=== PATIENT | female | born 1970 | race Caucasian/White ===

== ENCOUNTER 2018-04-05 17:42 | Emergency (ER) | payer SELFPAY ==
[~2018-04-05] VITALS: Ht 157.5 cm; Wt 61.2 kg
--- NOTE | 2018-04-05 18:11 | PHYS DOC ---
Past History Past Medical History: Bipolar, Depression Past Surgical History: Alcohol Use: None Drug Use: None Adult General Chief Complaint Chief Complaint: LOWER EXTREMITY SWELLING [facility] HPI 47-year-old female presents with 2 week history of lower extremity swelling. The patient was seen 1 week ago at [facility] and had a workup that was all negative. She states that they "evaluated her heart, took x-rays, and lab work." She comes to the ED today because it isn't going away. Does not of a history of lower extremity swelling. She does not a history of diabetes. She's had no medication changes. She denies any pain in the lower extremities or shortness of breath. She's had no long plane flights or car rides. She denies fever or chills. She did start drinking extra suite iced tea 2 weeks ago and drinking every day for about a week. She thought this might be part of the cause so she stopped drinking it. But has not improved. She continued in her PCP for another 2 weeks. Review of Systems Review of Systems Constitutional: Denies fever or chills [] Eyes: Denies change in visual acuity, redness, or eye pain [] HENT: Denies nasal congestion or sore throat [] Respiratory: Denies cough or shortness of breath [] Cardiovascular: No additional information not addressed in HPI [] GI: Denies abdominal pain, nausea, vomiting, bloody stools or diarrhea [] : Denies dysuria or hematuria [] Musculoskeletal: Bilateral lower extremity swelling[] Integument: Denies rash or skin lesions [] Neurologic: Denies headache, focal weakness or sensory changes [] Endocrine: Denies polyuria or polydipsia [] All other systems were reviewed and found to be within normal limits, except as documented in this note. Allergies Allergies Allergies Coded Allergies Type Severity Reaction Last Updated Verified Sulfa (Sulfonamide Antibiotics) Allergy Unknown 04/05/18 Yes Physical Exam Physical Exam Constitutional: Well developed, well nourished, no acute distress, non-toxic appearance. [] HENT: Normocephalic, atraumatic, bilateral external ears normal, oropharynx moist, no oral exudates, nose normal. [] Eyes: PERRLA, EOMI, conjunctiva normal, no discharge. [] Neck: Normal range of motion, no tenderness, supple, no stridor. [] Cardiovascular:Heart rate regular rhythm, no murmur [] Lungs & Thorax: Bilateral breath sounds clear to auscultation [] Abdomen: Bowel sounds normal, soft, no tenderness, no masses, no pulsatile masses. [] Skin: Warm, dry, no erythema, no rash. [] Back: No tenderness, no CVA tenderness. [] Extremities: No tenderness, no cyanosis, no clubbing, ROM intact, 2+ nonpitting edema from the ankles to below the knee, bilateral[] Neurologic: Alert and oriented X 3, normal motor function, normal sensory function, no focal deficits noted. [] Psychologic: Affect normal, judgement normal, mood normal. [] Current Patient Data Vital Signs Vital Signs Date Time Temp Pulse Resp B/P (MAP) Pulse Ox O2 Delivery O2 Flow Rate FiO2 04/05/18 17:52 98.2 68 16 97 Room Air EKG EKG [] Radiology/Procedures Radiology/Procedures [] Course & Med Decision Making Course & Med Decision Making Pertinent Labs and Imaging studies reviewed. (See chart for details) The patient's labs were again unremarkable. I will give the patient a 5 day course of Lasix to try at home. I stressed to her that she cannot take this medication for more than 3-5 days without follow-up with her PCP. I will only provide 5 tablets. [] Dragon Disclaimer Dragon Disclaimer This electronic medical record was generated, in whole or in part, using a voice recognition dictation system. Departure Departure: Referrals: OFELIA EDWARDS MD (PCP) Scripts Furosemide (LASIX) 20 Mg Tablet 1 TAB PO DAILY PRN for swelling of legs, #5 TAB 5 Refills Prov: ODALIS CANNON DO 04/05/18 ODALIS CANNON DO April 05, 2018 18:11
[2018-04-05 18:34] LABS: BASO % 1 % (0-3); EOS # 0.4 x10^3/uL (0.0-0.7); EOS % 7 % (0-3); HEMATOCRIT 38.9 % (36.0-47.0); HEMOGLOBIN 13.2 g/dL (12.0-15.5); LYMPH % 34 % (24-48); MEAN CORPUSCULAR HEMOGLOBIN 29 pg (25-35); MEAN CORPUSCULAR HGB CONC 34 g/dL (31-37); MEAN CORPUSCULAR VOLUME 86 fL (79-100); MONO # 0.4 x10^3/uL (0.0-1.1); MONO % 8 % (0-9); NEUT # 2.9 x10^3uL (1.8-7.7); NEUT % 50 % (31-73); PLATELET COUNT 258 x10^3/uL (140-400); RED BLOOD COUNT 4.54 x10^6/uL (3.50-5.40); RED CELL DISTRIBUTION WIDTH 12.7 % (11.5-14.5); WHITE BLOOD COUNT 5.7 x10^3/uL (4.0-11.0)
[2018-04-05 18:52] LABS: ALBUMIN 3.7 g/dL (3.4-5.0); ALBUMIN/GLOBULIN RATIO 1.2 (1.0-1.7); CALCIUM 9.1 mg/dL (8.5-10.1); CREATININE 0.9 mg/dL (0.6-1.0); GFR 67.7; TOTAL BILIRUBIN 0.4 mg/dL (0.2-1.0); TOTAL PROTEIN 6.8 g/dL (6.4-8.2)
[2018-04-05] MEDS ORDERED: FURO-69 PO (19:28)
[2018-04-05 19:35] VITALS: BP 144/80
== END 2018-04-05 19:40 | disposition home or self-care (01) ==
LOC: ER 17:42
DX: R60.0 Localized edema (principal); F31.9 Bipolar disorder, unspecified; Z88.2 Allergy status to sulfonamides
CPT/HCPCS: 36415; 80053; 83880; 85025; 99284

== ENCOUNTER 2018-05-27 17:43 | Emergency (ER) | payer SELFPAY ==
[~2018-05-27] VITALS: Ht 154.9 cm; Wt 54.4 kg
[~2018-05-27 17:43] MED LIST: FURO-69 PO
--- NOTE | 2018-05-27 17:53 | PHYS DOC ---
Past History Past Medical History: Bipolar, Depression Past Surgical History: Smoking: Non-smoker Alcohol Use: None Drug Use: None Adult General Chief Complaint Chief Complaint: I have UTI" HPI HPI 48-year-old female patient complaining of urinary frequency and dysuria for the last 2 weeks that gradually getting worse. Patient complaining of suprapubic sharp pain as a constant pain and rated her pain 8/10 and states the pain did not get better with [id number] Tylenol. The complaining of nausea without fever, diarrhea, constipation, vaginal bleeding or discharge. Patient states she gets urinary tract infections frequently. LMP was May 03. Review of Systems Review of Systems Constitutional: Denies fever or chills [] Eyes: Denies change in visual acuity, redness, or eye pain [] HENT: Denies nasal congestion or sore throat [] Respiratory: Denies cough or shortness of breath [] Cardiovascular: No additional information not addressed in HPI [] GI: Reports abdominal pain, nausea, denies vomiting, bloody stools or diarrhea [ ] : Reports dysuria and urinary frequency ] Musculoskeletal: Denies back pain or joint pain [] Integument: Denies rash or skin lesions [] Neurologic: Denies headache, focal weakness or sensory changes [] Endocrine: Denies polyuria or polydipsia [] All other systems were reviewed and found to be within normal limits, except as documented in this note. Allergies Allergies Allergies Coded Allergies Type Severity Reaction Last Updated Verified Sulfa (Sulfonamide Antibiotics) Allergy Unknown 04/05/18 Yes Physical Exam Physical Exam Constitutional: Well nourished, mild distress, non-toxic appearance, anxious [] HENT: Normocephalic, atraumatic, oropharynx moist Eyes: PERRLA, EOMI, conjunctiva normal, no discharge. [] Neck: Normal range of motion, no tenderness, supple, no stridor. [] Cardiovascular:Heart rate regular rhythm, no murmur [] Lungs & Thorax: Bilateral breath sounds clear to auscultation [] Abdomen: Bowel sounds normal, soft, no tenderness, no masses, no pulsatile masses. [] Skin: Warm, dry, no erythema, no rash. [] Back: No tenderness, no CVA tenderness. [] Extremities: No tenderness, no cyanosis, no clubbing, ROM intact, no edema. [] Neurologic: Alert and oriented X 3, normal motor function, normal sensory function, no focal deficits noted. [] Psychologic: Affect anxious, judgement normal, mood normal. [] EKG EKG [] Radiology/Procedures Radiology/Procedures [] Course & Med Decision Making Course & Med Decision Making Pertinent Labs reviewed. (See chart for details) discharge: I've spoken with the patient and/or caregivers. I've explained the patient's condition, diagnosis and treatment plan based on information available to me at this time. I've answered the patient's and/or caregivers questions and addressed any concerns. The patient and/or caregivers have a good understanding the patient's diagnosis, condition and treatment plan as can be expected at this point. Vital signs have been stabilized. The patient's condition is stable for discharge from the emergency department. The patient will pursue further outpatient evaluation with her primary care provider or other designated consulting physician as outlined in the discharge instructions. Patient and/or caregivers are agreeable to this plan of care and follow-up instructions have been explained in detail. The patient and/or caregivers have received these instructions in written format and expressed understanding of these discharge instructions. The patient and her caregivers are aware that if any significant change in condition or worsening of symptoms should prompt him to immediately return to this of the closest emergency department. If an emergent department is not readily available I would encourage him to call 911. [] Dragon Disclaimer Dragon Disclaimer This electronic medical record was generated, in whole or in part, using a voice recognition dictation system. Departure Departure: Impression: Primary Impression: Urinary tract infection Additional Impressions: Dysuria Nausea Suprapubic pain Disposition: HOME, SELF-CARE Condition: STABLE Referrals: OFELIA EDWARDS MD (PCP) Patient Instructions: Urinary Tract Infection Additional Instructions: Drink plenty of liquids Follow-up with your primary care physician in 3-5 days Return to ER if not getting better Scripts Ondansetron (ZOFRAN ODT) 4 Mg Tab.rapdis 1 TAB SL Q8HRS, #15 TAB Prov: ROSA JAMES MD 05/27/18 Phenazopyridine Hcl (PYRIDIUM) 100 Mg Tablet 100 MG PO BID, #10 TAB Prov: ROSA JAMES MD 05/27/18 Ciprofloxacin Hcl (CIPRO) 250 Mg Tablet 1 TAB PO BID, #14 TAB Prov: ROSA JAMES MD 05/27/18 Problem Qualifiers ROSA JAMES MD May 27, 2018 17:53
[2018-05-27] MEDS ORDERED: HYDROcodone/APAP 5/325MG 1 TAB TABLET PO ONE (18:00)
[2018-05-27] MEDS ORDERED: ONDANSETRON ODT 4 MG TAB.RAPDIS PO ONE (18:00)
[2018-05-27] MEDS ORDERED: CIPR250T30 PO (18:06)
[2018-05-27] MEDS ORDERED: PHEN100T82 PO (18:06)
[2018-05-27] MEDS ORDERED: ONDA4TAB10 SL (18:06)
[2018-05-27 18:19] VITALS: BP 119/57
[2018-05-27 18:22] LABS: BILIRUBIN,URINE NEG (NEG); CLARITY,URINE CLOUDY; COLOR,URINE YELLOW; GLUCOSE,URINE NEG (NEG); NITRITE,URINE POS (NEG); UROBILINOGEN,URINE 0.2 mg/dL (0.2 mg/dL)
== END 2018-05-27 18:17 | disposition home or self-care (01) ==
LOC: ER 17:43
DX: N39.0 Urinary tract infection, site not specified (principal); F31.9 Bipolar disorder, unspecified; Z98.890 Other specified postprocedural states; Z88.2 Allergy status to sulfonamides
CPT/HCPCS: 81003; 81025; 99283; Q0162

== ENCOUNTER 2018-06-12 20:05 | Emergency (ER) | payer SELFPAY ==
[~2018-06-12] VITALS: Ht 154.9 cm; Wt 54.4 kg
[~2018-06-12 20:05] MED LIST changes: +CIPR250T30 PO; +ONDA4TAB10 SL; +PHEN100T82 PO
--- NOTE | 2018-06-12 20:09 | ED.ADGEN ---
Past History Past Medical History: Anxiety, Bipolar, Depression Past Surgical History: No Surgical History Smoking: Non-smoker Alcohol Use: None Drug Use: None Adult General Chief Complaint Chief Complaint "..I got this vaginal discharge.. and it hurts to pee... It started about 3 days ago.... I do get UTI's.. but never had all this discharge... I did have sex with my about a week ago... We've been ... " HPI HPI Patient is a 68 year old female who presents with above hx , and complaints of vaginal discharge / dysuria. Patient relates she had unprotected sex with her who she been from for the past several weeks. Last sex prostate 1 week ago. Symptoms as a dysuria and vaginal discharge started approximately 3 days ago. Patient has had 15 lifetime sex partners. No history of prior STDs. Has had frequent histories of urinary tract infections. Patient denies any travel. Patient denies any specific ill contacts. Patient has had 2 previous C-sections. Patient denies any intake bad food. Patient denies any travel. Patient denies any specific history of ill contacts. Patient follows Dr. Kendall. Review of Systems Review of Systems Constitutional: Denies fever or chills [] Eyes: Denies change in visual acuity, redness, or eye pain [] HENT: Denies nasal congestion or sore throat [] Respiratory: Denies cough or shortness of breath [] Cardiovascular: No additional information not addressed in HPI [] GI: Denies abdominal pain, nausea, vomiting, bloody stools or diarrhea [] : Complaints of dysuria and vaginal discharge Musculoskeletal: Denies back pain or joint pain [] Integument: Denies rash or skin lesions [] Neurologic: Denies headache, focal weakness or sensory changes [] Endocrine: Denies polyuria or polydipsia [] All other systems were reviewed and found to be within normal limits, except as documented in this note. Family History Family History Noncontributory Current Medications Current Medications Current Medications Medications (Trade) Dose Ordered Sig/Kenny Start Time Stop Time Status Last Admin Dose Admin Azithromycin (Zithromax) 1,000 mg 1X ONCE 06/12/18 23:15 06/12/18 23:16 DC 06/12/18 23:43 1,000 MG Ceftriaxone Sodium 1 gm/ Sodium Chloride 50 ml @ 100 mls/hr 1X ONCE 06/12/18 21:00 06/12/18 21:29 UNV Ceftriaxone Sodium (Rocephin) 1 gm 1X ONCE 06/12/18 21:15 06/12/18 21:16 DC 06/12/18 21:37 1 GM Lactated Ringer's 1,000 ml @ 1,000 mls/hr Q1H 06/12/18 20:43 06/12/18 21:42 DC 06/12/18 21:34 1,000 MLS/HR Metronidazole (Flagyl) 2,000 mg 1X ONCE 06/12/18 23:15 06/12/18 23:16 DC 06/12/18 23:42 2,000 MG Ondansetron HCl (Zofran) 8 mg 1X ONCE 06/12/18 23:15 06/12/18 23:16 DC 06/12/18 23:43 8 MG Allergies Allergies Allergies Coded Allergies Type Severity Reaction Last Updated Verified Sulfa (Sulfonamide Antibiotics) Allergy Intermediate 05/27/18 Yes sulfamethoxazole Allergy Intermediate 05/27/18 Yes trimethoprim Allergy Intermediate 05/27/18 Yes Physical Exam Physical Exam Constitutional: Well developed, well nourished, moderately acute distress, non- toxic appearance. [] HENT: Normocephalic, atraumatic, bilateral external ears normal, oropharynx moist, no oral exudates, nose normal. [] Eyes: PERRLA, EOMI, conjunctiva normal, no discharge. [] Neck: Normal range of motion, no tenderness, supple, no stridor. [] Cardiovascular:Heart rate regular rhythm, no murmur [] Lungs & Thorax: Bilateral breath sounds clear to auscultation [] Abdomen: Bowel sounds normal, soft, lower pelvic tenderness, no masses, no pulsatile masses. [] Patient has a foamy, green/white, putrid smelling discharge from vaginal area. Obvious cervicitis with pus coming from os. Cervical motion tenderness.. Hard stool on rectal exam. Skin: Warm, dry, no erythema, no rash. [] Back: No tenderness, no CVA tenderness. [] Extremities: No tenderness, no cyanosis, no clubbing, ROM intact, no edema. [] Neurologic: Alert and oriented X 3, normal motor function, normal sensory function, no focal deficits noted. [] Psychologic: Affect anxious, judgement normal, mood normal. [] Current Patient Data Vital Signs Vital Signs Date Time Temp Pulse Resp B/P (MAP) Pulse Ox O2 Delivery O2 Flow Rate FiO2 06/12/18 23:15 78 20 128/76 (93) 96 Room Air 06/12/18 20:16 97.5 Lab Results Laboratory Tests Test 06/12/18 20:18 06/12/18 22:35 Urine Collection Type Unknown Urine Color Yellow Urine Clarity Hazy Urine pH 6.0 Urine Specific [place] 1.025 Urine Protein Trace (NEG-TRACE) Urine Glucose (UA) Neg mg/dL (NEG) Urine Ketones (Stick) Neg mg/dL (NEG) Urine Blood Neg (NEG) Urine Nitrite Neg (NEG) Urine Bilirubin Neg (NEG) Urine Urobilinogen Dipstick 0.2 mg/dL (0.2 mg/dL) Urine Leukocyte Esterase Neg (NEG) Urine RBC 6-10 /HPF (0-2) Urine WBC 5-10 /HPF (0-4) Urine Squamous Epithelial Cells Few /LPF Urine Bacteria 0 /HPF (0-FEW) Urine Mucus Marked /LPF Urine Test Negative (NEG) Urine Opiates Screen Pos (NEG) Urine Methadone Screen Neg (NEG) Urine Barbiturates Neg (NEG) Urine Phencyclidine Screen Neg (NEG) Urine Amphetamine/Methamphetamine Neg (NEG) Urine Benzodiazepines Screen Pos (NEG) Urine Cocaine Screen Neg (NEG) Urine Cannabinoids Screen Neg (NEG) Urine Ethyl Alcohol Neg (NEG) White Blood Count 7.7 x10^3/uL (4.0-11.0) Red Blood Count 4.32 x10^6/uL (3.50-5.40) Hemoglobin 12.7 g/dL (12.0-15.5) Hematocrit 37.4 % (36.0-47.0) Mean Corpuscular Volume 87 fL (79-100) Mean Corpuscular Hemoglobin 30 pg (25-35) Mean Corpuscular Hemoglobin Concent 34 g/dL (31-37) Red Cell Distribution Width 12.7 % (11.5-14.5) Platelet Count 239 x10^3/uL (140-400) Neutrophils (%) (Auto) 59 % (31-73) Lymphocytes (%) (Auto) 30 % (24-48) Monocytes (%) (Auto) 7 % (0-9) Eosinophils (%) (Auto) 4 % (0-3) H Basophils (%) (Auto) 1 % (0-3) Neutrophils # (Auto) 4.5 x10^3uL (1.8-7.7) Lymphocytes # (Auto) 2.3 x10^3/uL (1.0-4.8) Monocytes # (Auto) 0.5 x10^3/uL (0.0-1.1) Eosinophils # (Auto) 0.3 x10^3/uL (0.0-0.7) Basophils # (Auto) 0.1 x10^3/uL (0.0-0.2) Sodium Level 140 mmol/L (136-145) Potassium Level 3.4 mmol/L (3.5-5.1) L Chloride Level 104 mmol/L (98-107) Carbon Dioxide Level 28 mmol/L (21-32) Anion Gap 8 (6-14) Blood Urea Nitrogen 13 mg/dL (7-20) Creatinine 0.9 mg/dL (0.6-1.0) Estimated GFR (Cockcroft-Gault) 67.4 Glucose Level 82 mg/dL (70-99) Calcium Level 8.8 mg/dL (8.5-10.1) Total Bilirubin 0.3 mg/dL (0.2-1.0) Direct Bilirubin 0.1 mg/dL (0.0-0.2) Aspartate Amino Transferase (AST) 18 U/L (15-37) Alanine Aminotransferase (ALT) 21 U/L (14-59) Alkaline Phosphatase 66 U/L (46-116) Total Protein 6.6 g/dL (6.4-8.2) Albumin 3.8 g/dL (3.4-5.0) Microbiology 06/12/18 Wet Prep - Final, Complete Laboratory Tests Test 06/12/18 20:18 06/12/18 22:35 Urine Collection Type Unknown Urine Color Yellow Urine Clarity Hazy Urine pH 6.0 Urine Specific [place] 1.025 Urine Protein Trace (NEG-TRACE) Urine Glucose (UA) Neg mg/dL (NEG) Urine Ketones (Stick) Neg mg/dL (NEG) Urine Blood Neg (NEG) Urine Nitrite Neg (NEG) Urine Bilirubin Neg (NEG) Urine Urobilinogen Dipstick 0.2 mg/dL (0.2 mg/dL) Urine Leukocyte Esterase Neg (NEG) Urine RBC 6-10 /HPF (0-2) Urine WBC 5-10 /HPF (0-4) Urine Squamous Epithelial Cells Few /LPF Urine Bacteria 0 /HPF (0-FEW) Urine Mucus Marked /LPF Urine Test Negative (NEG) Urine Opiates Screen Pos (NEG) Urine Methadone Screen Neg (NEG) Urine Barbiturates Neg (NEG) Urine Phencyclidine Screen Neg (NEG) Urine Amphetamine/Methamphetamine Neg (NEG) Urine Benzodiazepines Screen Pos (NEG) Urine Cocaine Screen Neg (NEG) Urine Cannabinoids Screen Neg (NEG) Urine Ethyl Alcohol Neg (NEG) White Blood Count 7.7 x10^3/uL (4.0-11.0) Red Blood Count 4.32 x10^6/uL (3.50-5.40) Hemoglobin 12.7 g/dL (12.0-15.5) Hematocrit 37.4 % (36.0-47.0) Mean Corpuscular Volume 87 fL (79-100) Mean Corpuscular Hemoglobin 30 pg (25-35) Mean Corpuscular Hemoglobin Concent 34 g/dL (31-37) Red Cell Distribution Width 12.7 % (11.5-14.5) Platelet Count 239 x10^3/uL (140-400) Neutrophils (%) (Auto) 59 % (31-73) Lymphocytes (%) (Auto) 30 % (24-48) Monocytes (%) (Auto) 7 % (0-9) Eosinophils (%) (Auto) 4 % (0-3) H Basophils (%) (Auto) 1 % (0-3) Neutrophils # (Auto) 4.5 x10^3uL (1.8-7.7) Lymphocytes # (Auto) 2.3 x10^3/uL (1.0-4.8) Monocytes # (Auto) 0.5 x10^3/uL (0.0-1.1) Eosinophils # (Auto) 0.3 x10^3/uL (0.0-0.7) Basophils # (Auto) 0.1 x10^3/uL (0.0-0.2) Sodium Level 140 mmol/L (136-145) Potassium Level 3.4 mmol/L (3.5-5.1) L Chloride Level 104 mmol/L (98-107) Carbon Dioxide Level 28 mmol/L (21-32) Anion Gap 8 (6-14) Blood Urea Nitrogen 13 mg/dL (7-20) Creatinine 0.9 mg/dL (0.6-1.0) Estimated GFR (Cockcroft-Gault) 67.4 Glucose Level 82 mg/dL (70-99) Calcium Level 8.8 mg/dL (8.5-10.1) Total Bilirubin 0.3 mg/dL (0.2-1.0) Direct Bilirubin 0.1 mg/dL (0.0-0.2) Aspartate Amino Transferase (AST) 18 U/L (15-37) Alanine Aminotransferase (ALT) 21 U/L (14-59) Alkaline Phosphatase 66 U/L (46-116) Total Protein 6.6 g/dL (6.4-8.2) Albumin 3.8 g/dL (3.4-5.0) Microbiology 06/12/18 Wet Prep - Final, Complete EKG EKG [] Radiology/Procedures Radiology/Procedures [] Course & Med Decision Making Course & Med Decision Making Pertinent Labs and Imaging studies reviewed. (See chart for details). Patient follow-up pending cultures. Patient practice safe sex. Patient take Keflex 500 mg 3 times a day for the next 10 days. Patient take Diflucan 100 mg daily for 3 days after completion of Keflex. Patient to have a repeat pelvic exam after completing meds to ensure clearing of STD. Sexual partner to be informed of STD. [] Final Impression Final Impression 1. Dysuria 2. Vaginal Discharge 3. Cervicitis 4. Trichomonas Dragon Disclaimer Dragon Disclaimer This electronic medical record was generated, in whole or in part, using a voice recognition dictation system. LULA ALDRIDGE MD Jun 12, 2018 20:09
[2018-06-12] MEDS ORDERED: IV RINGERS SOLUTION,LACTATED 1,000 ML IV SCH (20:43)
[2018-06-12 20:51] LABS: BACTERIA,URINE 0 /HPF (0-FEW); BILIRUBIN,URINE NEG (NEG); CLARITY,URINE HAZY; COLOR,URINE YELLOW; GLUCOSE,URINE NEG (NEG); NITRITE,URINE NEG (NEG); SQUAMOUS EPITHELIAL CELL,UR FEW /LPF; UROBILINOGEN,URINE 0.2 mg/dL (0.2 mg/dL)
[2018-06-12 21:10] LABS: AMPHETAMINE/METHAMPHETAMINE NEG (NEG); BARBITURATES NEG (NEG); BENZODIAZEPINES POS (NEG); CANNABINOIDS NEG (NEG); COCAINE NEG (NEG); METHADONE NEG (NEG); OPIATES POS (NEG); PHENCYCLIDINE NEG (NEG)
[2018-06-12] MEDS ORDERED: cefTRIAXone IV Push 1 GM VIAL. IVP ONE (21:15)
[2018-06-12] MEDS ORDERED: FLUC100T7 PO (22:58)
[2018-06-12] MEDS ORDERED: CEPH-264 PO (22:58)
[2018-06-12 23:15] VITALS: BP 128/76
[2018-06-12] MEDS ORDERED: AZITHROMYCIN 250 MG TABLET. PO ONE (23:15)
[2018-06-12] MEDS ORDERED: ONDANSETRON PF 4 MG/2 ML VIAL. IV ONE (23:15)
[2018-06-12] MEDS ORDERED: metroNIDAZOLE 500 MG TABLET PO ONE (23:15)
[2018-06-12 23:17] LABS: BASO # 0.1 x10^3/uL (0.0-0.2); BASO % 1 % (0-3); EOS # 0.3 x10^3/uL (0.0-0.7); EOS % 4 % (0-3); HEMATOCRIT 37.4 % (36.0-47.0); HEMOGLOBIN 12.7 g/dL (12.0-15.5); LYMPH # 2.3 x10^3/uL (1.0-4.8); LYMPH % 30 % (24-48); MEAN CORPUSCULAR HEMOGLOBIN 30 pg (25-35); MEAN CORPUSCULAR HGB CONC 34 g/dL (31-37); MEAN CORPUSCULAR VOLUME 87 fL (79-100); MONO # 0.5 x10^3/uL (0.0-1.1); MONO % 7 % (0-9); NEUT # 4.5 x10^3uL (1.8-7.7); NEUT % 59 % (31-73); PLATELET COUNT 239 x10^3/uL (140-400); RED BLOOD COUNT 4.32 x10^6/uL (3.50-5.40); RED CELL DISTRIBUTION WIDTH 12.7 % (11.5-14.5); WHITE BLOOD COUNT 7.7 x10^3/uL (4.0-11.0)
[2018-06-12 23:17] LABS: U PREG PATIENT NEGATIVE (NEG)
[2018-06-12 23:29] LABS: ALBUMIN 3.8 g/dL (3.4-5.0); CALCIUM 8.8 mg/dL (8.5-10.1); CREATININE 0.9 mg/dL (0.6-1.0); DIRECT BILIRUBIN 0.1 mg/dL (0.0-0.2); GFR 67.4; POTASSIUM 3.4 mmol/L (3.5-5.1); TOTAL BILIRUBIN 0.3 mg/dL (0.2-1.0); TOTAL PROTEIN 6.6 g/dL (6.4-8.2)
[2018-06-14 16:11] LABS: CHLAMYDIA PROBE Negative (Negative)
== END 2018-06-12 23:55 | disposition home or self-care (01) ==
LOC: ER 20:05
DX: N72 Inflammatory disease of cervix uteri (principal); A59.9 Trichomoniasis, unspecified; F41.9 Anxiety disorder, unspecified; F31.9 Bipolar disorder, unspecified; Z87.440 Personal history of urinary (tract) infections; Z98.890 Other specified postprocedural states; Z88.2 Allergy status to sulfonamides; Z88.1 Allergy status to other antibiotic agents
CPT/HCPCS: 36415; 80048; 80076; 80307; 81001; 81025; 85025; 86592; 86703; 86705; 86709; 86803; 87086; 87340; 87491; 87591; 96374; 96375; 99284; J0456; J0696; J2405; J7120; Q0111; G0479

== ENCOUNTER 2018-09-26 08:46 | Emergency (ER) | payer SELFPAY ==
[~2018-09-26 08:46] MED LIST changes: +CEPH-264 PO; +FLUC100T7 PO
[2018-09-26] MEDS ORDERED: IBUPROFEN 600 MG TABLET. PO ONE (09:30)
[2018-09-26] MEDS ORDERED: NAPR-683 PO (09:48)
[2018-09-26] MEDS ORDERED: PHEN100T82 PO (09:48)
[2018-09-26] MEDS ORDERED: CEPH-264 PO (09:48)
--- NOTE | 2018-09-26 09:49 | PHYS DOC ---
Past History Past Medical History: No Pertinent History Past Surgical History: No Surgical History Smoking: Non-smoker Alcohol Use: None Drug Use: None Adult General Chief Complaint Chief Complaint: PAIN ON URINATION [facility] HPI Patient is a 48 year old female with history of frequent UTI who presents with complaining of urinary frequency and abdominal pain for several weeks. Patient complaining of lower abdominal and suprapubic pain 6 weeks and urinary frequency and dysuria for 3 weeks without fever, vaginal bleeding, pain during intercourse. Patient complaining of nausea and right flank pain and states she took ibuprofen with partial improvement of her pain. Patient did not take any [id number] or prescribed medication for UTI. Review of Systems Review of Systems Constitutional: Denies fever or chills [] Eyes: Denies change in visual acuity, redness, or eye pain [] HENT: Denies nasal congestion or sore throat [] Respiratory: Denies cough or shortness of breath [] Cardiovascular: No additional information not addressed in HPI [] GI: Reports abdominal pain, nausea, denies vomiting, bloody stools or diarrhea [ ] : Reports urinary frequency and dysuria Musculoskeletal: Denies back pain or joint pain [] Integument: Denies rash or skin lesions [] Neurologic: Denies headache, focal weakness or sensory changes [] Endocrine: Denies polyuria or polydipsia [] All other systems were reviewed and found to be within normal limits, except as documented in this note. Current Medications Current Medications Current Medications Medications (Trade) Dose Ordered Sig/Kenny Start Time Stop Time Status Last Admin Dose Admin Ibuprofen (Motrin) 600 mg 1X ONCE 09/26/18 09:30 09/26/18 09:34 DC Allergies Allergies Allergies Coded Allergies Type Severity Reaction Last Updated Verified Sulfa (Sulfonamide Antibiotics) Allergy Intermediate 05/27/18 Yes sulfamethoxazole Allergy Intermediate 05/27/18 Yes trimethoprim Allergy Intermediate 05/27/18 Yes Physical Exam Physical Exam Constitutional: Well developed, well nourished, mild distress, non-toxic appearance. [] HENT: Normocephalic, atraumatic, oropharynx moist. Eyes: PERRLA, EOMI, conjunctiva normal, no discharge. [] Neck: Normal range of motion, no tenderness, supple, no stridor. [] Cardiovascular:Heart rate regular rhythm, no murmur [] Lungs & Thorax: Bilateral breath sounds clear to auscultation [] Abdomen: Bowel sounds normal, soft, no tenderness, no masses, no pulsatile masses. [] Skin: Warm, dry, no erythema, no rash. [] Back: No tenderness, no CVA tenderness. [] Extremities: No tenderness, no cyanosis, no clubbing, ROM intact, no edema. [] Neurologic: Alert and oriented X 3, normal motor function, normal sensory function, no focal deficits noted. [] Psychologic: Affect anxious, judgement normal, mood normal. [] Current Patient Data Lab Results Laboratory Tests Test 09/26/18 09:23 POC Urine HCG, Qualitative hcg negative (Negative) EKG EKG [] Radiology/Procedures Radiology/Procedures [] Course & Med Decision Making Course & Med Decision Making Pertinent Labs reviewed. (See chart for details) discharge: I've spoken with the patient and/or caregivers. I've explained the patient's condition, diagnosis and treatment plan based on information available to me at this time. I've answered the patient's and/or caregivers questions and addressed any concerns. The patient and/or caregivers have a good understanding the patient's diagnosis, condition and treatment plan as can be expected at this point. Vital signs have been stabilized. The patient's condition is stable for discharge from the emergency department. The patient will pursue further outpatient evaluation with her primary care provider or other designated consulting physician as outlined in the discharge instructions. Patient and/or caregivers are agreeable to this plan of care and follow-up instructions have been explained in detail. The patient and/or caregivers have received these instructions in written format and expressed understanding of these discharge instructions. The patient and her caregivers are aware that if any significant change in condition or worsening of symptoms should prompt him to immediately return to this of the closest emergency department. If an emergent department is not readily available I would encourage him to call 911. Mirella Disclaimer Dragon Disclaimer This electronic medical record was generated, in whole or in part, using a voice recognition dictation system. Departure Departure: Impression: Primary Impression: Recurrent urinary tract infection Condition: STABLE Referrals: OFELIA EDWARDS MD (PCP) Patient Instructions: Dysuria, Urinary Tract Infection Additional Instructions: Drink plenty of liquids Follow-up with your primary care physician in 3-5 days Return to ER if not getting better Scripts Naproxen (NAPROSYN) 500 Mg Tablet 1 TAB PO BID for pain, #14 TAB Prov: ROSA JAMES MD 09/26/18 Phenazopyridine Hcl (PYRIDIUM) 100 Mg Tablet 100 MG PO BID for dysuria, #10 TAB Prov: ROSA JAMES MD 09/26/18 Cephalexin (KEFLEX) 500 Mg Capsule 2 CAP PO Q12HR for infection, #28 CAP Prov: ROSA JAMES MD 09/26/18 ROSA JAMES MD Sep 26, 2018 09:49
[2018-09-26 09:54] VITALS: BP 118/45
[2018-09-26 09:58] LABS: AMPHETAMINE/METHAMPHETAMINE NEG (NEG); BARBITURATES NEG (NEG); BENZODIAZEPINES POS (NEG); CANNABINOIDS NEG (NEG); COCAINE NEG (NEG); METHADONE NEG (NEG); OPIATES NEG (NEG); PHENCYCLIDINE NEG (NEG)
[2018-09-26 10:01] LABS: CLARITY,URINE CLOUDY; COLOR,URINE YELLOW
[2018-09-26 10:02] LABS: BACTERIA,URINE MANY /HPF (0-FEW); BILIRUBIN,URINE NEG (NEG); GLUCOSE,URINE NEG (NEG); NITRITE,URINE POS (NEG); RBC,URINE 0 /HPF (0-2); SQUAMOUS EPITHELIAL CELL,UR OCC /LPF; UROBILINOGEN,URINE 0.2 mg/dL (0.2 mg/dL)
[2018-09-26 10:03] LABS: AMORPHOUS SEDIMENT,UR PRESENT /HPF
== END 2018-09-26 09:54 | disposition home or self-care (01) ==
LOC: ER 08:46
DX: N39.0 Urinary tract infection, site not specified (principal); Z87.440 Personal history of urinary (tract) infections; Z88.2 Allergy status to sulfonamides; Z88.1 Allergy status to other antibiotic agents
CPT/HCPCS: 36415; 80307; 81001; 81025; 87086; 99284

== ENCOUNTER 2018-11-24 07:56 | Emergency (ER) | payer SELFPAY ==
[~2018-11-24 07:56] MED LIST changes: +NAPR-683 PO
--- NOTE | 2018-11-24 08:11 | PHYS DOC ---
Past History Past Medical History: Bipolar Past Surgical History: (x2) Smoking: Non-smoker Alcohol Use: None Drug Use: None Adult General Chief Complaint Chief Complaint: FLU SYMPTOM HPI HPI Patient is a 48 year old female who presents with low back pain, nausea, vomiting, and diarrhea. This has been present for the past several days. No blood in the stool or emesis. Patient was exposed to her daughter who had similar issues, while visiting her daughter in [place]. Patient denies any fever. Denies any dysuria. Denies any out of the country travel. Nothing seems to make the discomfort better or worse. Patient reports that she has diffuse abdominal achy/cramping that is mild to moderate in intensity.[] Review of Systems Review of Systems Constitutional: Denies fever or chills [] Eyes: Denies change in visual acuity, redness, or eye pain [] HENT: Denies nasal congestion or sore throat [] Respiratory: Denies cough or shortness of breath [] Cardiovascular: No chest pain or palpitations[] GI: See history of present illness[] : Denies dysuria or hematuria [] Musculoskeletal: Denies back pain or joint pain [] Integument: Denies rash or skin lesions [] Neurologic: Denies headache, focal weakness or sensory changes [] Endocrine: Denies polyuria or polydipsia [] All other systems were reviewed and found to be within normal limits, except as documented in this note. Current Medications Current Medications Current Medications Medications (Trade) Dose Ordered Sig/Kenny Start Time Stop Time Status Last Admin Dose Admin Hyoscyamine (Anaspaz) 0.125 mg 1X ONCE 11/24/18 08:15 11/24/18 08:16 UNV Ondansetron HCl (Zofran Odt) 4 mg 1X ONCE 11/24/18 08:15 11/24/18 08:16 UNV Allergies Allergies Allergies Coded Allergies Type Severity Reaction Last Updated Verified Sulfa (Sulfonamide Antibiotics) Allergy Intermediate 05/27/18 Yes sulfamethoxazole Allergy Intermediate 05/27/18 Yes trimethoprim Allergy Intermediate 05/27/18 Yes Physical Exam Physical Exam Constitutional: Well developed, well nourished, no acute distress, non-toxic appearance. [] HENT: Normocephalic, atraumatic, bilateral external ears normal, oropharynx moist, no oral exudates, nose normal. [] Eyes: PERRLA, EOMI, conjunctiva normal, no discharge. [] Neck: Normal range of motion, no tenderness, supple, no stridor. [] Cardiovascular:Heart rate regular rhythm, no murmur [] Lungs & Thorax: Bilateral breath sounds clear to auscultation [] Abdomen: Bowel sounds increased, soft, diffuse tenderness, no rebound, no guarding, no rigidity, sits up without any difficulty, no masses, no pulsatile masses. [] Skin: Warm, dry, no erythema, no rash. [] Back: No tenderness, no CVA tenderness. [] Extremities: No tenderness, no cyanosis, no clubbing, ROM intact, no edema. [] Neurologic: Alert and oriented X 3, normal motor function, normal sensory function, no focal deficits noted. [] Psychologic: Affect normal, judgement normal, mood normal. [] EKG EKG [] Radiology/Procedures Radiology/Procedures [] Course & Med Decision Making Course & Med Decision Making Pertinent Labs and Imaging studies reviewed. (See chart for details) ED course: Patient arrived, was placed in bed, tolerated exam well. Patient was able to tolerate medications. She was still having pain so she was given ketorolac. She tolerated this well. After the return of lab findings, these were discussed with the patient voiced understanding. All questions were answered. Medical decision making: There does not appear to be intractable nausea or vomiting, no evidence of urinary tract infection or pyelonephritis, nontoxic patient. No evidence of surgical intra-abdominal pathology at this time.[] Dragon Disclaimer Dragon Disclaimer This electronic medical record was generated, in whole or in part, using a voice recognition dictation system. Departure Departure: Impression: Primary Impression: Nausea, vomiting, and diarrhea Disposition: HOME, SELF-CARE Condition: GOOD Referrals: OFELIA EDWARDS MD (PCP) Follow-up in 2 days Patient Instructions: Diet for Diarrhea, Adult, Nausea and Vomiting Additional Instructions: Drink plenty of fluids, frequent small sips. No fatty foods, no milk, and no pepper for the next 48 hours. For the next 48 hours eat a diet rich in carbohydrates with foods such as bananas, rice, applesauce, and toast. Follow- up with your regular doctor in 2 days. Return to the ER if unable to tolerate liquids, blood in the emesis or stool, or any other concerns. Scripts Metoclopramide Hcl (REGLAN) 10 Mg Tablet 10 MG PO QID for nausea and vomiting, #30 TAB Prov: GARETH WELLER DO 11/24/18 Hyoscyamine Sulfate (LEVSIN) 0.125 Mg Tablet 0.125 MG PO QID for abdominal pain/cramping, #30 TAB Prov: GARETH WELLER DO 11/24/18 Meloxicam (MELOXICAM) 7.5 Mg Tablet 7.5 MG PO DAILY for PAIN, #20 TAB Prov: GARETH WELLER DO 11/24/18 GARETH WELLER DO Nov 24, 2018 08:11
[2018-11-24] MEDS ORDERED: ONDANSETRON ODT 4 MG TAB.RAPDIS PO ONE (08:15)
[2018-11-24] MEDS ORDERED: HYOSCYAMINE 0.125 MG TAB.RAPDIS PO ONE (08:15)
[2018-11-24 08:44] LABS: BILIRUBIN,URINE NEG (NEG); CLARITY,URINE HAZY; COLOR,URINE AMBER; GLUCOSE,URINE NEG (NEG); UROBILINOGEN,URINE 1 mg/dL (0.2 mg/dL)
[2018-11-24 08:44] LABS: INFLUENZA A PATIENT NEGATIVE (NEGATIVE); INFLUENZA B PATIENT NEGATIVE (NEGATIVE)
[2018-11-24 08:45] LABS: BACTERIA,URINE FEW /HPF (0-FEW); NITRITE,URINE NEG (NEG); SQUAMOUS EPITHELIAL CELL,UR MOD /LPF; WBC,URINE RARE /HPF (0-4)
[2018-11-24] MEDS ORDERED: KETOROLAC 15 MG/ML VIAL. IM ONE (08:45)
[2018-11-24] MEDS ORDERED: MELO7.5T29 PO (08:53)
[2018-11-24] MEDS ORDERED: HYOS0.1264 PO (08:53)
[2018-11-24] MEDS ORDERED: METO10TA81 PO (08:53)
[2018-11-24 09:07] VITALS: BP 111/65
== END 2018-11-24 09:07 | disposition home or self-care (01) ==
LOC: ER 07:56
DX: R11.2 Nausea with vomiting, unspecified (principal); R19.7 Diarrhea, unspecified; M54.5 Low back pain; R10.84 Generalized abdominal pain; Z98.890 Other specified postprocedural states; Z88.2 Allergy status to sulfonamides; Z88.1 Allergy status to other antibiotic agents
CPT/HCPCS: 81001; 81025; 87804; 96372; 99283; J1885; Q0162

== ENCOUNTER 2019-01-19 16:24 | Emergency (ER) | payer SELFPAY ==
[~2019-01-19] VITALS: Ht 154.9 cm; Wt 59.1 kg
[~2019-01-19 16:24] MED LIST changes: +HYOS0.1264 PO; +MELO7.5T29 PO; +METO10TA81 PO
[2019-01-19] MEDS ORDERED: HYDROcodone/APAP 5/325MG 1 TAB TABLET PO ONE (17:00)
[2019-01-19] MEDS ORDERED: LIDOCAINE 1% Multi-Dose 20 ML VIAL. IJ ONE (17:00)
--- NOTE | 2019-01-19 17:09 | PHYS DOC ---
Past History Past Medical History: No Pertinent History Past Surgical History: Smoking: Non-smoker Alcohol Use: None Drug Use: None Adult General Chief Complaint Chief Complaint: SKIN PROBLEM HPI HPI Patient is a 48 year old female who presents with complaining of painful lesion in right gluteal area for the last 4 or 5 days that did not get better. Patient was seen at [facility] 2 days ago without having any treatment.. Patient complaining of increasing of pain and drainage of pus. Patient denies history of MRSA. Patient is up-to-date with tetanus immunization. Review of Systems Review of Systems Constitutional: Reports subjective fever Eyes: Denies change in visual acuity, redness, or eye pain [] HENT: Denies nasal congestion or sore throat [] Respiratory: Denies cough or shortness of breath [] Cardiovascular: No additional information not addressed in HPI [] GI: Denies abdominal pain, nausea, vomiting, bloody stools or diarrhea [] : Denies dysuria or hematuria [] Musculoskeletal: Denies back pain or joint pain [] Integument: Denies rash, reports skin lesions [] Neurologic: Denies headache, focal weakness or sensory changes [] Endocrine: Denies polyuria or polydipsia [] All other systems were reviewed and found to be within normal limits, except as documented in this note. Current Medications Current Medications Current Medications Medications (Trade) Dose Ordered Sig/Kenny Start Time Stop Time Status Last Admin Dose Admin Acetaminophen/ Hydrocodone Bitart (Lortab 5/325) 2 tab 1X ONCE 01/19/19 17:00 01/19/19 17:01 DC Lidocaine HCl 20 ml 1X ONCE 01/19/19 17:00 01/19/19 17:01 DC Allergies Allergies Allergies Coded Allergies Type Severity Reaction Last Updated Verified Sulfa (Sulfonamide Antibiotics) Allergy Intermediate 01/19/19 Yes sulfamethoxazole Allergy Intermediate 01/19/19 Yes trimethoprim Allergy Intermediate 01/19/19 Yes Physical Exam Physical Exam Constitutional: Well developed, well nourished, moderate distress, non-toxic appearance. [] HENT: Normocephalic, atraumatic Eyes: PERRLA, EOMI, conjunctiva normal, no discharge. [] Neck: Normal range of motion, no tenderness, supple, no stridor. [] Cardiovascular:Heart rate regular rhythm, no murmur [] Lungs & Thorax: Bilateral breath sounds clear to auscultation [] Abdomen: Bowel sounds normal, soft, no tenderness, no masses, no pulsatile masses. [] Skin: Large area of erythema 20 x 20 cm in left gluteal with central abscess with drainage of pus Back: No tenderness, no CVA tenderness. [] Extremities: No tenderness, no cyanosis, no clubbing, ROM intact, no edema. [] Neurologic: Alert and oriented X 3, normal motor function, normal sensory function, no focal deficits noted. [] Psychologic: Affect normal, judgement normal, mood normal. [] Current Patient Data Vital Signs Vital Signs Date Time Temp Pulse Resp B/P (MAP) Pulse Ox O2 Delivery O2 Flow Rate FiO2 01/19/19 16:42 98.5 103 18 96 Room Air EKG EKG [] Radiology/Procedures Radiology/Procedures [] Course & Med Decision Making Course & Med Decision Making Evaluation of patient in ER showed 48-year-old female patient with a large abscess and gluteal area. I offered patient hospitalization and irrigation of the large abscess with general anesthesia. Patient wanted treatment in ER. Large abscess was drained with local anesthesia and large amount of pus was drained. Patient tolerated the procedure well. Patient was advised to return to ER in 48 hours for removed the packing and check the wound. Dragon Disclaimer Dragon Disclaimer This electronic medical record was generated, in whole or in part, using a voice recognition dictation system. Departure Departure: Impression: Primary Impression: Abscess, gluteal, right Disposition: HOME, SELF-CARE (at 1743) Condition: IMPROVED Referrals: OFELIA EDWARDS MD (PCP) Patient Instructions: Abscess, Abscess, Care After, Community-Associated MRSA Additional Instructions: Change dressing twice a day Follow-up with this emergency room in 2 days Drink plenty of liquids Follow-up with your primary care physician in 3-5 days Return to ER if not getting better Scripts Clindamycin Hcl (CLINDAMYCIN HCL) 150 Mg Capsule 1 CAP PO QID for infection, #28 CAP Prov: ROSA JAMES MD 01/19/19 Hydrocodone Bit/Acetaminophen (NORCO 5-325 TABLET) 1 Each Tablet 1 TAB PO PRN Q6HRS PRN for PAIN, #14 TAB 0 Refills Prov: ROSA JAMES MD 01/19/19 Incision and Drainage Indication: Left left Procedure: The patient was positioned appropriately and the skin over the incision site was cleaned with normal saline and alcohol. Local anesthesia was then with 1% lidocaine. An incision was then made over the gluteal abscess and a large amount of pus] material was expressed. Loculations were [removed. The drainage cavity was then dictated and packed . patients tetanus status up-to- date The patient tolerated the procedure well. Complications:none ROSA JAMES MD Jan 19, 2019 17:09
[2019-01-19] MEDS ORDERED: HYDR-3165 PO (17:45)
[2019-01-19] MEDS ORDERED: CLIN150C14 PO (17:45)
[2019-01-19 17:57] VITALS: BP 103/69
== END 2019-01-19 17:59 | disposition home or self-care (01) ==
LOC: ER 16:24
DX: L02.31 Cutaneous abscess of buttock (principal); Z88.2 Allergy status to sulfonamides; Z88.1 Allergy status to other antibiotic agents
CPT/HCPCS: 10060; 10061; 99283; 99284

== ENCOUNTER 2019-01-21 17:09 | Emergency (ER) | payer SELFPAY ==
[~2019-01-21] VITALS: Ht 154.9 cm; Wt 54.0 kg
[~2019-01-21 17:09] MED LIST changes: +CLIN150C14 PO; +HYDR-3165 PO
--- NOTE | 2019-01-21 17:32 | PHYS DOC ---
Past History Past Medical History: No Pertinent History Past Surgical History: Smoking: Non-smoker Alcohol Use: None Drug Use: None Adult General Chief Complaint Chief Complaint: WOUND CHECK [facility] Patient is a 48 year old female who presents for check after drainage of abscess 48 hours ago in this emergency room. Patient had a large left gluteal abscess that was drained with drainage of large amount of pus and had packing and instructed to come to ER for moving to packing and wound check. Patient states the pain improved and denies fever and chills. Review of Systems Review of Systems Constitutional: Denies fever or chills [] Eyes: Denies change in visual acuity, redness, or eye pain [] HENT: Denies nasal congestion or sore throat [] Respiratory: Denies cough or shortness of breath [] Cardiovascular: No additional information not addressed in HPI [] GI: Denies abdominal pain, nausea, vomiting, bloody stools or diarrhea [] : Denies dysuria or hematuria [] Musculoskeletal: Denies back pain or joint pain [] Integument: Denies rash, reports skin abscess Neurologic: Denies headache, focal weakness or sensory changes [] Endocrine: Denies polyuria or polydipsia [] All other systems were reviewed and found to be within normal limits, except as documented in this note. Allergies Allergies Allergies Coded Allergies Type Severity Reaction Last Updated Verified Sulfa (Sulfonamide Antibiotics) Allergy Intermediate 01/19/19 Yes sulfamethoxazole Allergy Intermediate 01/19/19 Yes trimethoprim Allergy Intermediate 01/19/19 Yes Physical Exam Physical Exam Constitutional: Well developed, well nourished, mild distress, non-toxic appearance. [] HENT: Normocephalic, atraumatic Eyes: PERRLA, EOMI, conjunctiva normal, no discharge. [] Neck: Normal range of motion, no tenderness, supple, no stridor. [] Cardiovascular:Heart rate regular rhythm, no murmur [] Lungs & Thorax: Bilateral breath sounds clear to auscultation [] Skin: Warm, dry, drained abscess in left gluteal area with improvement of erythema and induration, packing was removed with squeezing the wound without drainage of pus. Back: No tenderness, no CVA tenderness. [] Extremities: No tenderness, no cyanosis, no clubbing, ROM intact, no edema. [] Neurologic: Alert and oriented X 3, normal motor function, normal sensory function, no focal deficits noted. [] Psychologic: Affect anxious, judgement normal, mood normal. [] EKG EKG [] Radiology/Procedures Radiology/Procedures [] Course & Med Decision Making Course & Med Decision Making Evaluation of patient in ER showed 48-year-old female patient presented to ER after 48 hours of rechecked the gluteal abscess and removing the packing. Erythema and induration was improved and patient was removed without drainage of external pus. Patient was advised to keep the wound clean and dry and apply dressing and follow up with her primary care physician. Patient already treated with hydrocodone and clindamycin. Dragon Disclaimer Dragon Disclaimer This electronic medical record was generated, in whole or in part, using a voice recognition dictation system. Departure Departure: Impression: Primary Impression: Wound check, abscess Disposition: HOME, SELF-CARE (at 1730) Condition: IMPROVED Referrals: OFELIA EDWARDS MD (PCP) Patient Instructions: Abscess, Care After, Lenora-Rectal Abscess Additional Instructions: Drink plenty of liquids Follow-up with your primary care physician in 3-5 days Return to ER if not getting better Continue current medication ROSA JAMES MD Jan 21, 2019 17:32
[2019-01-21 17:42] VITALS: BP 117/79
== END 2019-01-21 17:45 | disposition home or self-care (01) ==
LOC: ER 17:09
DX: Z48.01 Encounter for change or removal of surgical wound dressing (principal); L02.31 Cutaneous abscess of buttock; Z88.2 Allergy status to sulfonamides; Z88.1 Allergy status to other antibiotic agents
CPT/HCPCS: 99281

== ENCOUNTER 2019-02-08 18:44 | Emergency (ER) | payer SELFPAY ==
[~2019-02-08] VITALS: Ht 154.9 cm; Wt 57.7 kg
[2019-02-08 18:54] VITALS: BP 129/83
--- NOTE | 2019-02-08 19:11 | ED.ADGEN ---
Past History Past Medical History: Anxiety, Asthma, Bipolar, Depression Past Surgical History: Smoking: Non-smoker Alcohol Use: None Drug Use: None Adult General Chief Complaint Chief Complaint ".. I am trying to get into [facility]... but may be Tuesday before an opening....I know I got get these on the right pulled... and maybe some on Lt. too... " HPI HPI Patient is a 48 year old female who presents with multiple dental caries and gingivitis. Patient aware she has chronic dental problems but has not completed follow-up with [facility]. Patient presents today because of exacerbation of her dental pain. Patient denies any history immunosuppression. Patient has no trismus. No adenopathy at angle jaw. Patient has plan for follow-up at [facility].. Requesting pain meds until she can complete her appointment. Patient does have a history of bipolar, anxiety, depression, and asthma. Review of Systems Review of Systems Constitutional: Denies fever or chills [] Eyes: Denies change in visual acuity, redness, or eye pain [] HENT: Denies nasal congestion or sore throat []history of dental pain Respiratory: Denies cough or shortness of breath [] Cardiovascular: No additional information not addressed in HPI [] GI: Denies abdominal pain, nausea, vomiting, bloody stools or diarrhea [] : Denies dysuria or hematuria [] Musculoskeletal: Denies back pain or joint pain [] Integument: Denies rash or skin lesions [] Neurologic: Denies headache, focal weakness or sensory changes [] Endocrine: Denies polyuria or polydipsia [] All other systems were reviewed and found to be within normal limits, except as documented in this note. Family History Family History Noncontributory Current Medications Current Medications Current Medications Medications (Trade) Dose Ordered Sig/Kenny Start Time Stop Time Status Last Admin Dose Admin Cephalexin HCl (Keflex) 500 mg 1X ONCE 02/08/19 19:30 02/08/19 19:30 DC 02/08/19 19:25 500 MG Hydrocodone Bitartrate/ Ibuprofen (Vicoprofen 7.5-200) 2 tab 1X ONCE 02/08/19 19:30 02/08/19 19:30 DC 02/08/19 19:24 2 TAB Allergies Allergies Allergies Coded Allergies Type Severity Reaction Last Updated Verified Sulfa (Sulfonamide Antibiotics) Allergy Intermediate 01/19/19 Yes sulfamethoxazole Allergy Intermediate 01/19/19 Yes trimethoprim Allergy Intermediate 01/19/19 Yes Physical Exam Physical Exam Constitutional: in acute distress, Normocephalic, atraumatic, bilateral external ears normal, oropharynx moist, no oral exudates, nose normal. Multiple dental caries. Eyes: PERRLA, EOMI, conjunctiva normal, no discharge. [] Neck: Normal range of motion, no tenderness, supple, no stridor. [] Cardiovascular:Heart rate regular rhythm, no murmur [] Lungs & Thorax: Bilateral breath sounds equal at apex on auscultation [] Abdomen: Bowel sounds normal, soft, no tenderness, no masses, no pulsatile masses. [] Old surgery scar. Skin: Warm, dry, no erythema, no rash. [] Back: No tenderness, no CVA tenderness. [] Extremities: No tenderness, no cyanosis, no clubbing, ROM intact, no edema. [] Neurologic: Alert and oriented X 3, normal motor function, normal sensory function, no focal deficits noted. [] Psychologic: Affect anxious, judgement normal, mood normal. [] Current Patient Data Vital Signs Vital Signs Date Time Temp Pulse Resp B/P (MAP) Pulse Ox O2 Delivery O2 Flow Rate FiO2 02/08/19 18:54 98.2 76 18 96 Room Air EKG EKG [] Radiology/Procedures Radiology/Procedures [] Course & Med Decision Making Course & Med Decision Making Pertinent Labs and Imaging studies reviewed. (See chart for details) Patient to keep follow-up with [facility]. Patient take Tylenol or ibuprofen for pain. Patient take Keflex 500x3 times a day. Patient may take Vicoprofen up to 4 times a day for marked pain. Must follow-up with the dentist. No further narcotics can be issued to ED must have renewal of pain meds through primary care or the dentist. [] Final Impression Final Impression 1. Dental Pain[] 2. Dental caries Dragon Disclaimer Dragon Disclaimer This electronic medical record was generated, in whole or in part, using a voice recognition dictation system. Dragon Disclaimer This chart was dictated in whole or in part using Voice Recognition software in a busy, high-work load, and often noisy Emergency Department environment. It may contain unintended and wholly unrecognized errors or omissions. Discharge Summary Visit Information Final Diagnosis Problems Medical Problems: (1) Pain due to dental caries Status: Acute Brief Hospital Course Allergies Allergies Coded Allergies Type Severity Reaction Last Updated Verified Sulfa (Sulfonamide Antibiotics) Allergy Intermediate 01/19/19 Yes sulfamethoxazole Allergy Intermediate 01/19/19 Yes trimethoprim Allergy Intermediate 01/19/19 Yes Vital Signs Vital Signs Date Time Temp Pulse Resp B/P (MAP) Pulse Ox O2 Delivery O2 Flow Rate FiO2 02/08/19 18:54 98.2 76 18 96 Room Air Brief Hospital Course Ms. Bailey is a 48 old female who presented with complaints of dental pain from dental caries. Pt. to complete follow u p with dentist. Discharge Information Condition at Discharge: Improved, Stable Disposition/Orders: D/C to Home Dischare Medications Current Medications Cephalexin HCl (Keflex) 500 mg 1X ONCE PO Last administered on 02/08/19at 19:25 ; Admin Dose 500 MG; Start 02/08/19 at 19:30; Stop 02/08/19 at 19:30; Status DC Hydrocodone Bitartrate/ Ibuprofen (Vicoprofen 7.5-200) 2 tab 1X ONCE PO Last administered on 02/08/19at 19:24; Admin Dose 2 TAB; Start 02/08/19 at 19:30; Stop 02/08/19 at 19:30; Status DC Active Scripts Active Keflex (Cephalexin) 500 Mg Capsule 500 Mg PO TID PRN Hydrocodone-Ibuprofen 7.5-200 (Hydrocodone/Ibuprofen) 1 Each Tablet 1 Tab PO PRN Q6HRS PRN Clindamycin Hcl 150 Mg Capsule 1 Cap PO QID Chilo 5-325 Tablet (Hydrocodone Bit/Acetaminophen) 1 Each Tablet 1 Tab PO PRN Q6HRS PRN Reglan (Metoclopramide Hcl) 10 Mg Tablet 10 Mg PO QID Levsin (Hyoscyamine Sulfate) 0.125 Mg Tablet 0.125 Mg PO QID Meloxicam 7.5 Mg Tablet 7.5 Mg PO DAILY Naprosyn (Naproxen) 500 Mg Tablet 1 Tab PO BID Pyridium (Phenazopyridine Hcl) 100 Mg Tablet 100 Mg PO BID Keflex (Cephalexin) 500 Mg Capsule 2 Cap PO Q12HR Diflucan (Fluconazole) 100 Mg Tablet 100 Mg PO DAILY 3 Days Keflex (Cephalexin) 500 Mg Capsule 500 Mg PO TID Zofran Odt (Ondansetron) 4 Mg Tab.rapdis 1 Tab SL Q8HRS Pyridium (Phenazopyridine Hcl) 100 Mg Tablet 100 Mg PO BID Cipro (Ciprofloxacin Hcl) 250 Mg Tablet 1 Tab PO BID Lasix (Furosemide) 20 Mg Tablet 1 Tab PO DAILY LULA HERNANDEZ MD Feb 08, 2019 19:11
[2019-02-08] MEDS ORDERED: HYDR-1179 PO (19:17)
[2019-02-08] MEDS ORDERED: CEPH-264 PO (19:17)
[2019-02-08] MEDS ORDERED: CEPHALEXIN 250 MG CAPSULE PO ONE (19:30)
[2019-02-08] MEDS ORDERED: HYDROcodon/IBUPROFEN 7.5/200MG 1 TAB TABLET PO ONE (19:30)
== END 2019-02-08 19:28 | disposition home or self-care (01) ==
LOC: ER 18:44
DX: K02.9 Dental caries, unspecified (principal); K05.10 Chronic gingivitis, plaque induced; F41.9 Anxiety disorder, unspecified; J45.909 Unspecified asthma, uncomplicated; F31.9 Bipolar disorder, unspecified; Z88.2 Allergy status to sulfonamides; Z88.1 Allergy status to other antibiotic agents
CPT/HCPCS: 99283

== ENCOUNTER 2020-09-11 21:58 | Emergency (ER) | payer SELFPAY ==
[~2020-09-11] VITALS: Ht 154.9 cm; Wt 57.7 kg
[~2020-09-11 21:58] MED LIST changes: +HYDR-1179 PO
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
[2020-09-11 23:30] LABS: BASO # 0.1 x10^3/uL (0.0-0.2); BASO % 1 % (0-3); EOS # 0.4 x10^3/uL (0.0-0.7); EOS % 6 % (0-3); HEMOGLOBIN 12.8 g/dL (12.0-15.5); LYMPH % 30 % (24-48); MEAN CORPUSCULAR HEMOGLOBIN 29 pg (25-35); MEAN CORPUSCULAR HGB CONC 33 g/dL (31-37); MEAN CORPUSCULAR VOLUME 88 fL (79-100); MONO # 0.5 x10^3/uL (0.0-1.1); MONO % 7 % (0-9); NEUT # 3.7 x10^3uL (1.8-7.7); NEUT % 56 % (31-73); PLATELET COUNT 304 x10^3/uL (140-400); RED BLOOD COUNT 4.43 x10^6/uL (3.50-5.40); RED CELL DISTRIBUTION WIDTH 12.8 % (11.5-14.5); WHITE BLOOD COUNT 6.7 x10^3/uL (4.0-11.0)
[2020-09-11] MEDS ORDERED: AZITHROMYCIN 250 MG TABLET. PO ONE (23:30)
[2020-09-11] MEDS ORDERED: metroNIDAZOLE 500 MG TABLET PO ONE (23:30)
[2020-09-11] MEDS ORDERED: cefTRIAXone IM 250 MG VIAL IM ONE (23:30)
[2020-09-11 23:36] LABS: CREATININE 0.9 mg/dL (0.6-1.0); GFR 66.8; POTASSIUM 3.2 mmol/L (3.5-5.1)
[2020-09-11 23:42] LABS: ALBUMIN/GLOBULIN RATIO 1.2 (1.0-1.7); TOTAL BILIRUBIN 0.3 mg/dL (0.2-1.0); TOTAL PROTEIN 7.4 g/dL (6.4-8.2)
--- NOTE | 2020-09-11 23:51 | RAD ---
INDICATION: Trauma COMPARISON: None. FINDINGS: Single view of chest obtained. No focal airspace consolidation. Cardiomediastinal contour unremarkable. No acute osseous abnormality. IMPRESSION: * No focal airspace consolidation or edema. Electronically signed by: Dilan Joy MD (09/11/2020 11:49 PM) [id number]
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
[2020-09-12] MEDS ORDERED: IBUPROFEN 600 MG TABLET. PO ONE (00:15)
[2020-09-12] MEDS ORDERED: IBUP-1673 PO (00:23)
[2020-09-12 00:25] LABS: BILIRUBIN,URINE NEG (NEG); CLARITY,URINE HAZY; COLOR,URINE YELLOW; GLUCOSE,URINE NEG (NEG); NITRITE,URINE POS (NEG); RBC,URINE OCC /HPF (0-2); UROBILINOGEN,URINE 0.2 mg/dL (0.2 mg/dL); WBC,URINE >40 /HPF (0-4)
[2020-09-12 00:26] LABS: BACTERIA,URINE MANY /HPF (0-FEW); SQUAMOUS EPITHELIAL CELL,UR OCC /LPF
[2020-09-12] MEDS ORDERED: CEPHALEXIN 250 MG CAPSULE PO ONE (00:30)
[2020-09-12] MEDS ORDERED: CEPH-264 PO (00:32)
[2020-09-12 00:40] VITALS: BP 114/75
[2020-09-12] MEDS ORDERED: ONDANSETRON ODT 4 MG TAB.RAPDIS PO ONE (00:45)
[2020-09-15 18:08] LABS: CHLAMYDIA PROBE Positive (Negative)
== END 2020-09-12 00:45 | disposition home or self-care (01) ==
LOC: ER 21:58 → MERGE 21:58 → ER 09-12 00:45
DX: T76.21XA Adult sexual abuse, suspected, initial encounter (principal); N30.00 Acute cystitis without hematuria; M54.2 Cervicalgia; X58.XXXA Exposure to other specified factors, initial encounter; Y93.89 Activity, other specified; Y92.89 Other specified places as the place of occurrence of the external cause; Y99.8 Other external cause status
CPT/HCPCS: 70450; 71045; 72125; 80053; 81001; 81025; 85025; 87086; 87491; 87591; 96372; 99285; J0456; J0696; Q0111; Q0162; 36415; 87077; 87186

== ENCOUNTER 2021-10-10 23:18 | Emergency (ER) | payer SELFPAY ==
[~2021-10-10] VITALS: Ht 154.9 cm; Wt 57.7 kg
[~2021-10-10 23:18] MED LIST changes: -CLIN150C14 PO; +CLIN150C16 PO; +IBUP-1673 PO
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
[2021-10-11] MEDS ORDERED: cefTRIAXone IM 500 MG VIAL. IM ONE
[2021-10-11] MEDS ORDERED: AZITHROMYCIN 250 MG TABLET. PO ONE
[2021-10-11 00:02] VITALS: BP 120/87
[2021-10-11 00:21] LABS: BILIRUBIN,URINE NEG (NEG); COLOR,URINE YELLOW; GLUCOSE,URINE NEG (NEG); NITRITE,URINE NEG (NEG); UROBILINOGEN,URINE 0.2 mg/dL (0.2 mg/dL)
[2021-10-11 00:22] LABS: BACTERIA,URINE MOD /HPF (0-FEW); CLARITY,URINE CLOUDY; SQUAMOUS EPITHELIAL CELL,UR MOD /LPF; TRICHOMONAS,URINE PRESENT; WBC,URINE >40 /HPF (0-4)
[2021-10-11] MEDS ORDERED: metroNIDAZOLE 500 MG TABLET PO ONE (00:45)
== END 2021-10-11 00:48 | disposition home or self-care (01) ==
LOC: EEVIPCON 23:18 → ER 23:18
DX: A59.9 Trichomoniasis, unspecified (principal); F31.9 Bipolar disorder, unspecified; Z98.890 Other specified postprocedural states; Z88.2 Allergy status to sulfonamides; Z88.1 Allergy status to other antibiotic agents
CPT/HCPCS: 36415; 81001; 86592; 86703; 87086; 87491; 87591; 96372; 99283; J0696

== ENCOUNTER 2021-10-19 13:34 | Emergency (ER) | payer SELFPAY ==
[~2021-10-19] VITALS: Ht 154.9 cm; Wt 58.0 kg
[2021-10-19 13:43] VITALS: BP 114/74
--- NOTE | 2021-10-19 14:17 | PHYS DOC ---
Past History Past Medical History: Bipolar Past Surgical History: Smoking: Non-smoker Alcohol Use: None Drug Use: None General Adult EDM: Chief Complaint: VAGINAL PROBLEM HPI: HPI: 51-year-old female presents with concern for continued urinary tract infection or failed treatment of STD. Patient was seen on 10 October diagnosed with UTI as well as trichomonas. She was given single dose of Flagyl in the emergency room as well as Rocephin. She was discharged on ciprofloxacin for her urinary tract infection. She states that her symptoms have returned and she is worried that the antibiotics have not been working. She has dysuria and increased urinary frequency. She denies fever or chills. She has no other complaints this time. Review of Systems: Review of Systems: Constitutional: Denies fever or chills Eyes: Denies change in visual acuity HENT: Denies nasal congestion or sore throat Respiratory: Denies cough or shortness of breath Cardiovascular: Denies chest pain or edema GI: Denies abdominal pain, nausea, vomiting, bloody stools or diarrhea : Dysuria, urinary frequency Musculoskeletal: Denies back pain or joint pain Integument: Denies rash Neurologic: Denies headache, focal weakness or sensory changes Endocrine: Denies polyuria or polydipsia Lymphatic: Denies swollen glands Psychiatric: Denies depression or anxiety Allergies: Allergies: Allergies Coded Allergies Type Severity Reaction Last Updated Verified Sulfa (Sulfonamide Antibiotics) Allergy Intermediate 10/19/21 Yes sulfamethoxazole Allergy Intermediate 10/19/21 Yes trimethoprim Allergy Intermediate 10/19/21 Yes Physical Exam: PE: Constitutional: Well developed, well nourished, no acute distress, non-toxic appearance. [] HENT: Normocephalic, atraumatic, bilateral external ears normal, oropharynx moist, no oral exudates, nose normal. [] Eyes: PERRLA, EOMI, conjunctiva normal, no discharge. [] Neck: Normal range of motion, no tenderness, supple, no stridor. [] Cardiovascular: Heart rate regular rhythm, no murmur [] Lungs & Thorax: Bilateral breath sounds clear to auscultation [] Abdomen: Bowel sounds normal, soft, no tenderness, no masses, no pulsatile masses. [] Skin: Warm, dry, no erythema, no rash. [] Back: No tenderness, no CVA tenderness. [] Extremities: No tenderness, no cyanosis, no clubbing, ROM intact, no edema. [] Neurologic: Alert and oriented X 3, normal motor function, normal sensory function, no focal deficits noted. [] Psychologic: Affect normal, judgement normal, mood normal. [] Current Patient Data: Vital Signs: Vital Signs Date Time Temp Pulse Resp B/P (MAP) Pulse Ox O2 Delivery O2 Flow Rate FiO2 10/19/21 13:43 98.1 97 16 114/74 (87) 100 Room Air EKG: EKG: [] Radiology/Procedures: Radiology/Procedures: [] Heart Score: C/O Chest Pain: N/A Risk Factors: Risk Factors: DM, Current or recent (<one month) smoker, HTN, HLP, family history of CAD, obesity. Risk Scores: Score 0 - 3: 2.5% MACE over next 6 weeks - Discharge Home Score 4 - 6: 20.3% MACE over next 6 weeks - Admit for Clinical Observation Score 7 - 10: 72.7% MACE over next 6 weeks - Early Invasive Strategies Course & Med Decision Making: Course & Med Decision Making Pertinent Labs and Imaging studies reviewed. (See chart for details) The patient's urine culture and sensitivities from October 10, 2021 shows susceptibility to ciprofloxacin. The patient's urinalysis does not show infection. It also does not overtly show trichomonas but I am concerned that the single dose did not fully treat her. I will give her 7 days of Flagyl. She is stable for discharge at this time. [] Dragon Disclaimer: Dragon Disclaimer: This electronic medical record was generated, in whole or in part, using a voice recognition dictation system. Departure Departure: Impression: Primary Impression: Trichomonas infection Disposition: HOME / SELF CARE / HOMELESS Condition: STABLE Referrals: OFELIA EDWARDS MD (PCP) Patient Instructions: Trichomoniasis-Brief Scripts Metronidazole (METRONIDAZOLE) 500 Mg Tablet 1 TAB PO BID for trichomonas for 7 Days, #14 TAB 0 Refills Prov: ODALIS CANNON DO 10/19/21 ODALIS CANNON DO Oct 19, 2021 14:17
[2021-10-19 14:58] LABS: BILIRUBIN,URINE NEG (NEG); CLARITY,URINE CLEAR; COLOR,URINE YELLOW; GLUCOSE,URINE NEG (NEG)
[2021-10-19 14:59] LABS: BACTERIA,URINE FEW /HPF (0-FEW); NITRITE,URINE NEG (NEG); RBC,URINE OCC /HPF (0-2); SQUAMOUS EPITHELIAL CELL,UR MANY /LPF; UROBILINOGEN,URINE 0.2 mg/dL (0.2 mg/dL)
[2021-10-19] MEDS ORDERED: METR-34 PO (15:05)
== END 2021-10-19 15:21 | disposition home or self-care (01) ==
LOC: ER 13:34
DX: A59.9 Trichomoniasis, unspecified (principal); F31.9 Bipolar disorder, unspecified; Z87.440 Personal history of urinary (tract) infections; Z98.890 Other specified postprocedural states; Z88.2 Allergy status to sulfonamides; Z88.1 Allergy status to other antibiotic agents
CPT/HCPCS: 81001; 81025; 87086; 99283